=== PATIENT | male | born 1945 | race Caucasian/White ===

== ENCOUNTER → 2016-12-26 | Outpatient (CLI) | payer MEDICARE ==
[~2016-12-26] MED LIST: ACET325 PO; ALLO100T PO; ATEN-100 PO; ATEN25TA PO; CELE200C PO; COMMODE 3:1; COUM5TAB PO; CYCL1PAK PO; LOMO2.5T PO; LORTA5 PO; POLY17S PO; RIVA10 PO; WALKER ROLLING; WARF-18 PO; WARF-23 PO; Z.0.COMMODE-3:1; Z.0.WALKERFRONT
--- NOTE | 2016-12-26 11:05 | RADRPT ---
EXAM DATE/TIME: 12/26/2016 10:43 [facility] COMPARISON: CHEST SINGLE AP, December 28, 2015, 16:49. INDICATIONS : Evaluate for pneumonia, pneumothorax or communicable disease. Pre op left elbow surgery. MEDICAL HISTORY : None. SURGICAL HISTORY : ablation ENCOUNTER: Initial ACUITY: 1 day PAIN SCORE: 0/10 LOCATION: Bilateral chest FINDINGS: Minimal scarring or atelectasis the lung bases. No pleural effusion. Cardiac contours are stable and satisfactory. Degenerative changes are present in the spine. CONCLUSION: Stable chest. No acute disease. Rosales Ryan MD on December 26, 2016 at 11:01 Board Certified Radiologist. This report was verified electronically.
[2016-12-26 11:22] LABS: INTERNATIONAL NORMALIZED RATIO 2.7 RATIO; PROTHROMBIN TIME - PATIENT 31.5 SEC (9.8-11.6)
[2016-12-26 11:34] LABS: BACTERIA, URINE OCC /hpf; BLOOD, URINE TRACE (NEG); COMMENT (UR) CULT NOT INDICATED; CULTURE IF INDICATED CULT NOT INDICATED; GLUCOSE,URINE NEG (NEG); HYALINE CAST, URINE 1 /lpf (RARE); KETONE, URINE NEG (NEG); MUCUS URINE FEW /lpf (OCC); NITRITE,URINE NEG (NEG); SQUAMOUS EPITHELIAL CELL URINE <1 /hpf (0-5); URINE COLOR YELLOW (YELLW/STRAW)
[2016-12-26 11:46] LABS: BICARBONATE 27.3 MEQ/L (21.0-32.0); POTASSIUM 4.7 MEQ/L (3.5-5.1)
--- NOTE | 2016-12-27 23:58 | EKG ---
Date Performed: 12/26/2016 Time Performed: 10:03:48 PTAGE: 71 years EKG: Sinus rhythm LOW QRS VOLTAGE IN PRECORDIAL LEADS BORDERLINE ECG NO PREVIOUS TRACING DOCTOR: Vivek Trujillo Interpretating Date/Time 12/27/2016 23:57:41
== END ==
LOC: CPRE 09:40
PROVIDERS: ATTEND Orthopaedic Surgery
DX: Z01.812 Encounter for preprocedural laboratory examination (principal); Z01.810 Encounter for preprocedural cardiovascular examination; Z01.811 Encounter for preprocedural respiratory examination; M70.22 Olecranon bursitis, left elbow; M19.022 Primary osteoarthritis, left elbow; R94.31 Abnormal electrocardiogram [ECG] [EKG]; Z79.01 Long term (current) use of anticoagulants
CPT/HCPCS: 36415; 71020; 80048; 81001; 85610; 93005

== ENCOUNTER → 2017-01-05 | Day surgery (SDC) | payer MEDICARE ==
--- NOTE | 2016-12-22 16:08 | MH ---
cc: FERNANDO ROBERTO M.D. DATE OF ADMISSION: 01/05/2017 ADMITTING DIAGNOSIS: 1. 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 2. Osteoarthritis of the left elbow. 3. Pain of the left elbow HISTORY OF PRESENT ILLNESS: The patient is a 71-year-old white male who has experienced almost a one year history of pain and drainage of his left elbow region. He had been accustomed to working out at the gym several days per week and as a result of this activity, he began to experience pain and swelling about his left elbow for which he had undergone initial evaluation with his primary care physician Dr. Mercedes Harper. He was initially diagnosed as having cellulitis for which he was prescribed Bactrim and initially did experience some trend of improvement. His symptoms recurred thereafter and he was again started on a repeat course of Bactrim as well as taking Cipro that he had available at home. Unfortunately soreness about the elbow was associated with drainage for which he continued with conservative management, although he was not experiencing any additional associated fever. He did report that he had sustained blunt trauma to his left elbow during his college years while he was participating in football activity and did subsequently undergo operative intervention that involved excision of his olecranon bursa. He was evaluated by the undersigned physician in May of this past year and at that time x-ray studies did reveal localized hypertrophic bony reaction about the posterior aspect of his olecranon process with mild degenerative changes of the humeral articulation. Findings and treatment options were reviewed with the patient at that time and he was changed to Keflex 500 mg four times daily and was followed on an outpatient basis. Thereafter over the following several months his symptoms tended to wax and wane in nature with continued drainage about his elbow region for which he continued with conservative management and daily dressing changes. The amount of swelling and drainage tended to wax and wane during this interval of time while he was also being followed by Dr. Harper. He returned to the office more recently indicating that in spite of all treatment rendered he was continuing to have drainage about the elbow area with minimal discomfort associated, but was desirous of proceeding with a more definitive course of treatment. The involvement of operative intervention that would involve an excision of his olecranon bursa was outlined with emphasis being made in spite of operative treatment. The possibility of a delay in wound healing as well as persistent drainage about the elbow region, recurrent bursal sac formation would be associated with any form of operative treatment undertaken. The patient indicated his full understanding in this regard and expressed his desire to proceed with treatment at this time and in compliance with his wishes he is currently being admitted in order that an excision of his olecranon bursa be completed. PAST MEDICAL HISTORY, HOSPITALIZATIONS AND SURGERIES: His past medical history, hospitalizations and surgeries have included: 1. A right total hip arthroplasty completed within the past year. 2. Colonoscopy. 3. Partial colon resection for history of ulcerative colitis. 4. Tonsillectomy. 5. Medical management for septicemia. 6. Previous cardiac ablation. MEDICAL ILLNESSES: His medical illnesses include: 1. Bowel dysfunction following abdominal surgery. 2. Gout. 3. Irregular heartbeat. 4. Vascular insufficiency. MEDICATIONS: His current medications include: 1. Lomotil 2.5 milligrams six pills daily. 2. Allopurinol 100 milligrams daily. 3. Atenolol 25 milligrams daily. 4. Coumadin 5 milligrams daily. 5. Celebrex 200 milligrams daily. ALLERGIES: The patient medicates of drug allergy to: PENICILLIN WHICH HAS BEEN ASSOCIATED WITH HIVES AND SWELLING. REVIEW OF SYSTEMS: He does wear glasses primarily for reading purposes. No headache, seizure or syncope. No sinus congestion or epistaxis. Auditory acuity intact. No tinnitus. No bleeding gums or dysphagia. Denies cough, shortness of breath, upper respiratory infection, pneumonia or tuberculosis. No angina. He is status post cardiac ablation. Appetite good. There is a history of constipation and frequent diarrhea for which Lomotil was taken. No hepatitis, gallbladder disease, ulcers or hemorrhoids. No urinary tract infection. No kidney stones. No history of fractures. Positive history of chronic low back pain and neck pain for which he has been treated conservatively. No psychiatric illness. Remaining review of systems is unremarkable and noncontributory. FAMILY HISTORY: for over 40 years. No children. Family history positive for hypertension and stroke. 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 He completed a college education. Denies active use of tobacco, ethanol consumption in the form of occasional beer. PHYSICAL EXAMINATION: HEIGHT: 6 feet 4 inches. WEIGHT: 293 pounds. GENERAL: An alert, oriented responsive 71-year-old white male sitting quietly upon examination table in no obvious distress. HEAD, EYES, EARS, NOSE, THROAT: Pupils are equally round and reactive to light. Extraocular movements full. Sclerae clear. External nares clear. External auditory canals clear. Dental intact. Mucous membranes pink and moist. Pharynx clear. NECK: Supple. Active range of motion without appreciable pain. Carotid pulse bilaterally. Trachea midline. Thyroid without enlargement. LUNGS: Clear to auscultation and percussion. No CVA tenderness. No discomfort throughout the dorsal or lumbar spine. HEART: Regular rhythm. No murmur or gallop. ABDOMEN: Abdomen is soft, nontender. Bowel sounds present. RECTAL: Per primary care physician. EXTREMITIES: Left elbow - There is mild swelling about the posterior aspect of the elbow adjacent to the olecranon process. No significant drainage is noted at this time. Satisfactory mobility elbow joint without instability. Manager Track strength intact. Sensory intact. NEUROLOGIC: Cranial nerves II-XII grossly intact. IMPRESSION: 1. Chronic olecranon bursitis left elbow. 2. Osteoarthritis left elbow. 3. Pain left elbow PLAN: Excision olecranon bursa left elbow. The nature of the planned surgical procedure, the potential complications and risks associated, the expectations of surgery and the consent form have been thoroughly reviewed with the patient prior to his admission to the hospital. Rosales has indicated his full understanding regarding all of the above and given consent to proceed with treatment as outlined. Medical evaluation and clearance for surgery will be completed by his primary care physician Dr. Mercedes Harper. Fernando Roberto MD NBS/JCC /3:41 PM /3:53 PM
[~2017-01-05] VITALS: Ht 193 cm; Wt 131.5 kg
[~2017-01-05] MED LIST changes: -ACET325 PO; +ACETAMINOPHEN/HYDROcodone 325 MG/5 MG TAB PO PRN; -ATEN-100 PO; +BUPIVACAINE HCL PF 0.25% 30 ML VIAL ONE; +CHLORHEXIDINE GLUCONATE 2 % 1 PACK (2 CLOTHS) TOPICAL PRN; -COMMODE 3:1; -COUM5TAB PO; -CYCL1PAK PO; +DICLOFENAC SODIUM 37.5 MG/ML VIAL IV PUSH ONE; +DO NOT ADM ANY ANTICOAGULANT DRUGS PRN; +INSULIN HUMAN REGULAR 1,000 UNITS/10 ML VIAL SQ PRN; +LACTATED RINGER'S 1000 ML INJ 1,000 ML IV ONE; +LACTATED RINGER'S 1000 ML IV PRN; -LORTA5 PO; +METOPROLOL TARTRATE 25 MG TAB PO PRN; +MIDAZOLAM HCL 2 MG/2 ML VIAL ONE; +MORPHINE SULFATE 8 MG/ML INJ IM PRN; +ONDANSETRON HCL 4 MG/2 ML VIAL IV PUSH ONE; +PHENYLEPH/NS 1000 MCG/10 ML SYR IV ONE; -POLY17S PO; +POVIDONE IODINE 5% (ANTISEPSIS KIT) 4 APPLICATIONS EACH NARE PRN; +POVIDONE IODINE 7.5% SCRUB 118 ML BOTTLE TOPICAL SCH; +PROMETHAZINE INJ 25 MG/ML VIAL IM PRN; +PROPOFOL 200 MG/20 ML AMP IV ONE; -RIVA10 PO; +SODIUM CHLORID 0.9% 500 ML IV PRN; +VANCOMYCIN 1000 MG/NS 250 ML (for <70 kg) IV SCH; -WALKER ROLLING; -Z.0.COMMODE-3:1; -Z.0.WALKERFRONT; +ePHEDrine/NS 25 MG/5 ML SYR IV ONE
[2017-01-05 07:14] VITALS: BP 155/80; PULSE 69; RESP 16; TEMP 97.8; O2SAT 96
[2017-01-05 07:51] LABS: INTERNATIONAL NORMALIZED RATIO 1.6 RATIO
[2017-01-05 11:40] VITALS: BP 140/79; PULSE 62; RESP 18; TEMP 97.5; O2SAT 96
--- NOTE | 2017-01-05 23:23 | MP ---
cc: ZANDER ROBERTO MD DATE OF SURGERY 01/05/17 PREOPERATIVE DIAGNOSIS Chronic left olecranon bursitis POSTOPERATIVE DIAGNOSIS Chronic left olecranon bursitis PROCEDURE Excision left olecranon bursa. SURGEON Leonie Roberto MD ANESTHESIA General by LMA FORMAT Following induction of satisfactory general anesthesia by LMA insertion as completed per the department of anesthesia, a tourniquet was established around the proximal portion of the left upper extremity. The extremity proper was prepped with Betadine solution and thereafter draped into a sterile field in the routine manner. Prior to initiation of the actual procedure. the standard time-out protocol was completed. All parameters were appropriately addressed and confirmed by operating room personnel. The extremity was elevated for approximately 1 minute and the tourniquet thus inflated to 200 mmHg pressure. A sharp skin incision was initiated midline over the posterior aspect of the left elbow directly overlying the prominence of the olecranon process. The incision was developed in a deepening fashion with hemostasis maintained by electrocautery. By deepening dissection, a thickened bursal sac was readily identified in a circumferential manner utilizing both blunt and sharp dissection. The sac was excised in its entirety, the contents of which were a very thick, organized, semi purulent granular type tissue. With the sac excised, the posterior aspect of the olecranon process was identified, hypertrophic bone was identified and utilizing both rongeur and bone rasp, the hypertrophic bone was excised and the underlying cortical surface contoured with bone rasp. Visual and digital inspection confirmed a smooth contour accomplished thereafter. The wound was copiously irrigated with saline solution. Hemostasis maintained by electrocautery. A 1/4" Reliance drain was thereafter placed into the wound. The subcutaneous tissue was reapproximated with a running 2-0 Vicryl suture and the skin margins with a running 3-0 nylon suture. Xeroform gauze and a bulky dry sterile dressing applied. Tourniquet deflated after 40 minutes of tourniquet time. The extremity being supported in an arm sling, anesthesia was discontinued and the patient thus transferred to a hospital stretcher and returned to recovery room in satisfactory condition having tolerated his operative procedure well. Estimated blood loss was less than 10 mL. MD DAYANA Pinto/SA /10:30 AM /11:11 PM
== END | disposition home or self-care (01) ==
LOC: HSDC 05:54
PROVIDERS: ATTEND Orthopaedic Surgery
DX: M70.22 Olecranon bursitis, left elbow (principal); M19.022 Primary osteoarthritis, left elbow; M10.9 Gout, unspecified; I49.9 Cardiac arrhythmia, unspecified; I99.8 Other disorder of circulatory system; Z96.641 Presence of right artificial hip joint; Z79.01 Long term (current) use of anticoagulants; Z01.818 Encounter for other preprocedural examination
CPT/HCPCS: 01710; 24105; 85610; 88304; 88311; J1130; J2250; J2370; J2405; J3010; J3370; J7050; J7120